=== PATIENT | female | born 1945 | race Caucasian/White ===

== ENCOUNTER → 2017-08-29 | Outpatient (CLI) | payer MEDICARE ==
[~2017-08-29] MED LIST: BENZ100 PO; CANA300T PO; CETI10CA3 PO; CHOL1CAP61 PO; COMB0.2S EACH EYE; COUM2.5T PO; COUM5TAB PO; FENO145T2 PO; FLUT1INH INH; FLUT1SPR5 EACH NARE; FURO40TA PO; GLIM4TAB PO; IPRA0.06 EACH NARE; MOME0.1C23 TOPICAL; MONT10TA2 PO; MULT10CA PO; OXYB5TAB PO; PRAV40TA2 PO; SERT-129 PO; SPIR25TA PO; TAFL0.00 EACH EYE; THEO400T2 PO; VENTAER INH; [UNRECOGNIZED DRUG - CODE] PO; [UNRECOGNIZED DRUG - CODE] TOPICAL
--- NOTE | 2017-08-29 10:58 | RADRPT ---
EXAM DATE/TIME: 08/29/2017 10:41 [place] COMPARISON: No previous studies available for comparison. INDICATIONS : Dysphagia FLUORO TIME: .9 minutes IMAGE COUNT: 1 CONTRAST: Dose as prescribed by speech pathologist. MEDICAL HISTORY : None. SURGICAL HISTORY : None. ENCOUNTER: Initial ACUITY: 2 months PAIN SCORE: 0/10 LOCATION: Bilateral Esophagus FINDINGS: A modified barium swallow was performed with speech pathology. Patient was given a variety of liquids to swallow. There is normal rotation without evidence for pharyngeal penetration or aspiration. There is no signi ficant oropharyngeal focal abnormality. For a full detailed report, see report by the speech pathologist. CONCLUSION: 1. Unremarkable modified barium swallow examination. Rolo Canada MD on August 29, 2017 at 10:56 Board Certified Radiologist. This report was verified electronically.
== END ==
LOC: HRAD 10:21
PROVIDERS: ATTEND Internal Medicine Critical Care Medicine
DX: R13.10 Dysphagia, unspecified (principal)
CPT/HCPCS: 74230; 92611; G8996; G8997; G8998

== ENCOUNTER 2017-11-24 13:27 | Emergency (ER) | payer MEDICARE ==
[~2017-11-24] VITALS: Ht 151.1 cm; Wt 78.0 kg
[~2017-11-24 13:27] MED LIST changes: +ALPH0.1S EACH EYE; -CHOL1CAP61 PO; +D-3-50003 PO
[2017-11-24 13:29] VITALS: BP 142/70; PULSE 60; RESP 16; TEMP 98.4; O2SAT 97
[2017-11-24] MEDS ORDERED: PRED20 PO (14:28)
--- NOTE | 2017-11-24 14:28 | PD ---
HPI Chief Complaint: Skin Problem Time Seen by Provider: 14:18 Travel History International Travel<30 days: No Contact w/Intl Traveler<30days: No Traveled to known affect area: No History of Present Illness HPI 72-year-old female here for evaluation of pruritic rash to the posterior aspect of her thighs since this morning. Patient reports she went to have a massage and her masseuse noticed the rash. She denies any change in medications, detergents, soaps or new foods. The rash is localized to the buttocks and legs only. She denies difficulty swallowing, change in voice, wheezing. There is mild. No aggravating or alleviating factors. PFSH Past Medical History Asthma: Yes Atrial Fibrillation: Yes Autoimmune Disease: No Depression: Yes Heart Rhythm Problems: Yes Cancer: No Cardiovascular Problems: Yes (A FIB) High Cholesterol: Yes Chest Pain: Yes Diabetes: Yes (type 2) Patient Takes Glucophage: No Diminished Hearing: No Gastrointestinal Disorders: Yes Glaucoma: Yes Headaches: Yes Hepatitis: No Hiatal Hernia: No Hypertension: Yes Medical other: Yes (ARTHRITIS,NECK,HIGH CHOLESTEROL) Musculoskeletal: Yes Neurologic: Yes Respiratory: Yes (SLEEP APNEA; ASTHMA (USES C-PAP)) Immunizations Current: Yes Sleep Apnea: Yes Thyroid Disease: No Tetanus Vaccination: Unknown Influenza Vaccination: Yes Past Surgical History Abdominal Surgery: Yes Cardiac Surgery: No Section: Yes (x 1) Ear Surgery: No Endocrine Surgery: No Eye Surgery: No Genitourinary Surgery: No Gynecologic Surgery: Yes ( 84'; HYSTERECTOMY) Hysterectomy: Yes Neurologic Surgery: No Oral Surgery: Yes (ALL 4 WISDOM TEETH REMOVED) Pacemaker: No Thoracic Surgery: No Other Surgery: Yes (breast biopsy left) Social History Alcohol Use: Yes (rare) Tobacco Use: No Substance Use: No Allergies-Medications (Allergen,Severity, Reaction): Coded Allergies: bimatoprost (Verified Allergy, Severe, Rash, 11/24/17) budesonide (Verified Allergy, Severe, Rash, 11/24/17) ephedrine (Verified Allergy, Severe, Breathing problems, 11/24/17) metformin (Verified Allergy, Severe, Diarrhea, 11/24/17) omalizumab (Verified Allergy, Severe, Rash, 11/24/17) phenobarbital (Verified Allergy, Severe, Breathing problems, 11/24/17) tetanus toxoid, adsorbed (Verified Allergy, Severe, Swelling, 11/24/17) theophylline (Verified Allergy, Severe, Breathing problems, 11/24/17) warfarin (Verified Allergy, Severe, Diarrhea, 11/24/17) pork derived (porcine) (Verified Allergy, Intermediate, RASH, 11/24/17) ciprofloxacin (Verified Allergy, Mild, Rash, 11/24/17) house dust (Verified Allergy, Mild, SNEEZING TIGHT THROAT, 11/24/17) adhesive (Verified Adverse Reaction, Intermediate, RASH, 11/24/17) Uncoded Allergies: tedhral (Allergy, Severe, trouble breathing , 08/26/16) POISON OAK ANT (Allergy, Mild, RASH ITCHING, 11/15/03) Reported Meds & Prescriptions Reported Meds & Active Scripts Active Alphagan P Opth Drops (Brimonidine Tartrate) 0.1% Soln 1 Drop EACH EYE BID Reported Mometasone Topical (Mometasone Furoate) 0.1 % Cream 1 Applic TOPICAL DAILY Coumadin (Warfarin) 2.5 Mg Tab 2.5 Mg PO TUE,TUE,TUE,,SAT Coumadin (Warfarin) 5 Mg Tab 5 Mg PO TUESDAY AND TUESDAY Lanoxin (Digoxin) 0.0625 Mg Tab 0.25 Mg PO DAILY Ventolin Hfa 18 GM Inh (Albuterol Sulfate) 90 Mcg/Act Aer 1 Puff INH Q4H PRN Singulair (Montelukast Sodium) 10 Mg Tab 10 Mg PO HS Zyrtec (Cetirizine HCl) 10 Mg Capsule 1 Tab PO DAILY Invokana (Canagliflozin) 300 Mg Tab 300 Mg PO DAILY Take before 1st meal of day. Fenofibrate 145 Mg Tab 145 Mg PO DAILY Flonase Nasal Wheeler (Fluticasone Nasal Wheeler) 50 Mcg/Act Wheeler 50 Mcg EACH NARE PRN Furosemide 40 Mg Tab 40 Mg PO DAILY Glimepiride 4 Mg Tab 4 Mg PO DAILY Take with breakfast or first main meal Ipratropium Nasal 0.06% Wheeler 1 Wheeler EACH NARE PRN Oxybutynin ER 24 HR (Oxybutynin Chloride) 5 Mg Tab 5 Mg PO DAILY Preservision Areds 2 Softgel (Vit C/E/Zn/Coppr/Lutein/Zeaxan) 1 Each Capsule 1 Cap PO BID Pravastatin 40 Mg Tab 40 Mg PO DAILY Sertraline (Sertraline HCl) 100 Mg Tab 100 Mg PO DAILY Spironolactone 25 Mg Tab 25 Mg PO DAILY Theophylline ER 24 HR (Theophylline) 400 Mg Tab 20 Mg PO DAILY Urea 40 % Gel 1 Applic TOPICAL BID Zioptan Opth Drops (Tafluprost Opth Drops) 0.015 Mg/Ml Drops 1 Drop EACH EYE HS Vitamin D3 Ultra Strength (Cholecalciferol) 5,000 Unit Cap 5,000 Units PO DAILY Tessalon Perles (Benzonatate) 100 Mg Cap 100 Mg PO TID PRN Breo Ellipta Inh (Fluticasone/Vilanterol) 100-25 Mcg/Act Inh 1 Puff INH DAILY Use daily at the same time. Review of Systems Except as stated in HPI: all other systems reviewed are Neg Physical Exam Narrative GENERAL: Alert and well-appearing 72-year-old female SKIN: Warm and dry. Well demarcated erythematous circular rash to the buttocks and posterior thighs. HEAD: Normocephalic. EYES: No injection or drainage. THROAT: No pharyngeal erythema, no oral swelling, uvula midline, airway is patent. NECK: Supple, trachea midline. No JVD or lymphadenopathy. CARDIOVASCULAR: Regular rate and rhythm RESPIRATORY: Breath sounds equal bilaterally. No accessory muscle use. Data Data Last Documented VS Vital Signs Date Time Temp Pulse Resp B/P (MAP) Pulse Ox O2 Delivery O2 Flow Rate FiO2 11/24/17 13:29 98.4 60 16 142/70 (94) 97 MDM Medical Decision Making Medical Screen Exam Complete: Yes Emergency Medical Condition: Yes Differential Diagnosis Urticaria, contact dermatitis, other Narrative Course 72-year-old female with a pruritic rash to her buttocks and thighs since this morning. She is well-appearing. Her vital signs are stable. She has no oral airway swelling or wheezing. Patient be treated with short dose of steroids. She reports she is unable to take Benadryl due to allergy Diagnosis Primary Impression: Rash and nonspecific skin eruption Referrals: Primary Care Physician Additional Instructions: Take the steroids as directed. Follow up with her primary doctor for recheck. Return if he developed new or worsening symptoms Scripts Prednisone (Prednisone) 20 Mg Tab 40 MG PO DAILY, #10 TAB 0 Refills Take 40 mg (2 tablets) daily for 5 days Prov: Stephanie Hernandez 11/24/17 Stephanie Hernandez Nov 24, 2017 14:28
== END 2017-11-24 14:38 | disposition home or self-care (01) ==
LOC: PHEFT 13:27
DX: R21 Rash and other nonspecific skin eruption (principal); L29.9 Pruritus, unspecified; I10 Essential (primary) hypertension; E11.9 Type 2 diabetes mellitus without complications; I48.91 Unspecified atrial fibrillation; J45.909 Unspecified asthma, uncomplicated; E78.00 Pure hypercholesterolemia, unspecified; G47.30 Sleep apnea, unspecified; F32.9 Major depressive disorder, single episode, unspecified; Z79.84 Long term (current) use of oral hypoglycemic drugs; Z79.01 Long term (current) use of anticoagulants
CPT/HCPCS: 99283

== ENCOUNTER → 2018-02-22 | Day surgery (SDC) | payer MEDICARE ==
[~2018-02-22] VITALS: Ht 149.9 cm; Wt 76.0 kg
[~2018-02-22] MED LIST changes: +CHLORHEXIDINE GLUCONATE 2 % 1 PACK (2 CLOTHS) TOPICAL PRN; -COMB0.2S EACH EYE; +EPINEPHrine HCL PF/SF (1:1000) 1 MG/ML AMP I-OCULAR ONE; +HYALURONIDASE/LIDOCAINE/BUPIVACAINE 5 ML SYR RIGHT EYE ONE; +LACTATED RINGER'S 1000 ML IV PRN; +METOPROLOL TARTRATE 25 MG TAB PO PRN; +POVIDONE IODINE 5% (ANTISEPSIS KIT) 4 APPLICATIONS EACH NARE PRN; +PRED20 PO; +PROPOFOL 200 MG/20 ML AMP ONE; +SODIUM CHLORID 0.9% 500 ML IV PRN; +TOBRAMYCIN/DEXAMETHASONE OPTH OINT 3.5 GM TUBE ONE; +UREA1CRE TOPICAL; +VISCOAT OPHT IRRIG SOLN 0.75 ML SYRINGE ONE; +acetaZOLAMIDE SEQUELS 500 MG SUSTAINED RELEASE CAP ONE
[2018-02-22 08:03] VITALS: PULSE 76
[2018-02-22] MEDS: TETRACAINE 0.5% OPTH SOLN 4 ML BTL RIGHT EYE SCH ×3 (08:06→08:16)
[2018-02-22] MEDS: PHENYLEPHRINE HCL 10% OPTH SOLN 5 ML BTL RIGHT EYE SCH ×3 (08:06→08:16)
[2018-02-22] MEDS: CYCLOPENTOLATE HCL 1% OPHT SOLN 2 ML BTL RIGHT EYE SCH ×3 (08:06→08:16)
[2018-02-22] MEDS: TROPICAMIDE 1% OPHT SOLN 15 ML BTL RIGHT EYE SCH ×3 (08:06→08:16)
[2018-02-22 08:28] VITALS: PULSE 83
[2018-02-22 09:10] VITALS: TEMP 97.6
[2018-02-22 09:45] VITALS: BP 104/71; PULSE 64; RESP 16; O2SAT 98
--- NOTE | 2018-02-22 12:32 | PD.OP ---
Operative Report Date of Surgery: Feb 22, 2018 Preoperative Diagnosis: (1) Nuclear sclerotic cataract of right eye Postoperative Diagnosis: (1) Pseudophakia of right eye Procedure: phacoemulsification and intraocular lens implant right eye Anesthesia: retrobulbar block, MAC Surgeon: Britney Payan Warehouse Guard(s): none Operation and Findings: Patient was consented for surgery, given a retrobulbar block by anesthesia, and taken back to the operating room. She was prepped and draped in the usual sterile fashion for ophthalmic surgery. A wire lid speculum was placed in the right eye. A paracentesis incision was created at the 11 o'clock position on the limbus. Vision blue dye and viscoelastic was injected into the anterior chamber. The main incision was created at the 8 o'clock position on the limbus with a 2.4 mm keratome. A continuous curvilinear capsulorrhexis was made on the anterior lens capsule. Hydrodissection was used to separate the lens from the capsule. Phacoemulsification was used to remove the lens nucleus material. Irrigation and aspiration was used to remove the remaining cortical material. The lens implant ([id number] [id number] SN [id number]) was placed in the capsular bag. Viscoelastic was removed with irrigation and aspiration. The incisions were irrigated and found to be watertight. Tobradex ointment, a patch, and shield were placed on the right eye. The patient was sent to PACU in stable condition. Britney Payan MD Feb 22, 2018 12:32
== END | disposition home or self-care (01) ==
LOC: PHSDC 07:30
PROVIDERS: ATTEND Ophthalmology
DX: H25.11 Age-related nuclear cataract, right eye (principal); Z79.899 Other long term (current) drug therapy; Z79.01 Long term (current) use of anticoagulants; E11.9 Type 2 diabetes mellitus without complications; Z79.84 Long term (current) use of oral hypoglycemic drugs
CPT/HCPCS: 00142; 66984; 82948; J0171; J7040; V2632